=== PATIENT | male | born 1955 | race Caucasian/White ===

== ENCOUNTER 2021-02-26 13:17 | Emergency (ER) | payer MEDICARE, OTHER ==
[2021-02-26] MEDS ORDERED: Sodium Chloride 0.9% 10 ML Syringe FLUSH PRN (13:32)
[2021-02-26] MEDS ORDERED: Sodium Chloride 0.9% 1,000 ML IV SCH (13:45)
--- NOTE | 2021-02-26 14:54 | EDM.PDOC ---
ED HPI GENERAL MEDICAL PROBLEM - General Chief Complaint: Syncope Stated Complaint: [facility] Time Seen by Provider: 02/26/21 13:23 Source of Information: Reports: Patient, EMS History Limitations: Reports: No Limitations - History of Present Illness INITIAL COMMENTS - FREE TEXT/NARRATIVE: The patient presents by [facility] for syncope. He said he felt fine to day. He was out riding his [employer] and stopped for a couple beers. He said he was standing and felt lightheaded. Before he could lay down he passed out. He was out a few seconds. He had no seizure activity. He denies any injury from the fall. He has no headache, neck pain, chest pain, abdominal pain, arm or leg pain. He has no shortness of breath, nausea or vomiting. He has never had this happen before. He has no history of heart problems, hypertension or hypercholesterolemia. He does have some low back pain and he is thinking of having surgery done soon. Onset: Sudden Duration: Hour(s): Severity: Moderate Improves with: Reports: None Worsens with: Reports: None Associated Symptoms: Reports: No Other Symptoms - Related Data Allergies Allergy/AdvReac Type Severity Reaction Status Date / Time No Known Allergies Allergy Verified 02/26/21 13:22 Home Meds: Home Meds Omeprazole [Prilosec] 20 mg PO DAILY 12/11/15 [History] Sertraline [Zoloft] 100 mg PO DAILY 12/11/15 [History] Past Medical History Cardiovascular History: Reports: High Cholesterol Gastrointestinal History: Reports: GERD Psychiatric History: Reports: Depression Oncologic (Cancer) History: Reports: Prostate - Past Surgical History GI Surgical History: Reports: Hernia, Inguinal Other GI Surgeries/Procedures: colectomy for CA Social & Family History - Tobacco Use Tobacco Use Status *Q: Never Tobacco User - Caffeine Use Caffeine Use: Reports: None - Recreational Drug Use Recreational Drug Use: No - Living Situation & Occupation Living situation: Reports: Occupation: Employed ED ROS GENERAL - Review of Systems Review Of Systems: See Below Constitutional: Reports: No Symptoms HEENT: Reports: No Symptoms Respiratory: Reports: No Symptoms Cardiovascular: Reports: Syncope. Denies: Chest Pain Endocrine: Reports: No Symptoms GI/Abdominal: Reports: No Symptoms : Reports: No Symptoms Musculoskeletal: Reports: No Symptoms Skin: Reports: No Symptoms Neurological: Reports: No Symptoms ED EXAM, GENERAL - Physical Exam Exam: See Below Exam Limited By: No Limitations General Appearance: Alert, No Apparent Distress Ears: Normal External Exam Nose: Normal Inspection Head: Atraumatic, Normocephalic Neck: Normal Inspection Respiratory/Chest: No Respiratory Distress, Lungs Clear, Normal Breath Sounds Cardiovascular: Regular Rate, Rhythm, No Edema, No Murmur GI/Abdominal: Soft, Non-Tender, No Organomegaly, No Mass Back Exam: Normal Inspection Extremities: Normal Inspection Neurological: Alert, Oriented, No Motor/Sensory Deficits #1 Interpretation EKG Date: 02/26/21 Time: 13:24 Rhythm: NSR Rate (Beats/Min): 82 [place]: LAD-Left [place] Deviation P-Wave: Present QRS: Normal ST-T: Normal QT: Normal EKG Interpretation Comments: Q waves in the inferior leads Course - Vital Signs Last Recorded V/S: Last Vital Signs Temp 98.4 F 02/26/21 13:23 Pulse 81 02/26/21 13:23 Resp 12 02/26/21 13:23 BP 105/75 02/26/21 13:23 Pulse Ox 98 02/26/21 13:23 - Orders/Labs/Meds Orders: Active Orders 24 hr Category Date Time Status Cardiac Monitoring [RC] . DIRECTED Care 02/26/21 13:32 Active EKG Documentation Completion [RC] ASDIRECTED Care 02/26/21 13:31 Active Holter Monitor 48 Hours [RC] .PRN Care 02/26/21 14:47 Active Peripheral IV Care [RC] . DIRECTED Care 02/26/21 13:33 Active Sodium Chloride 0.9% [Normal Saline] 1,000 ml Med 02/26/21 13:45 Active IV .BOLUS Sodium Chloride 0.9% [Saline Flush] Med 02/26/21 13:32 Active 10 ml FLUSH ASDIRECTED PRN Peripheral IV Insertion Adult [OM.PC] Stat Oth 02/26/21 13:32 Ordered EKG 12 Lead [EK] Stat Ther 02/26/21 13:31 Ordered Medication Orders Sodium Chloride (Normal Saline) 1,000 mls @ 1,000 mls/hr IV .BOLUS DAVE Last Admin: 02/26/21 13:37 Dose: 1,000 mls/hr Documented by: COURTNEY Sodium Chloride (Sodium Chloride 0.9% 10 Ml Syringe) 10 ml FLUSH ASDIRECTED PRN PRN Reason: Keep Vein Open Last Admin: 02/26/21 13:38 Dose: 10 ml Documented by: COURTNEY Labs: Laboratory Tests 02/26/21 02/26/21 02/26/21 Range/Units 13:25 13:25 13:25 WBC 6.92 (4.23-9.07) K/mm3 RBC 4.44 L (4.63-6.08) M/mm3 Hgb 14.2 (13.7-17.5) gm/dl Hct 40.6 (40.1-51.0) % MCV 91.4 (79.0-92.2) fl MCH 32.0 (25.7-32.2) pg MCHC 35.0 (32.2-35.5) g/dl RDW Std Deviation 41.5 (35.1-43.9) fL Plt Count 327 (163-337) K/mm3 MPV 9.3 L (9.4-12.3) fl Neut % (Auto) 56.5 (34.0-67.9) % Lymph % (Auto) 32.8 (21.8-53.1) % [place] % (Auto) 8.2 (5.3-12.2) % Eos % (Auto) 1.2 (0.8-7.0) Baso % (Auto) 0.9 (0.1-1.2) % Neut # (Auto) 3.91 (1.78-5.38) K/mm3 Lymph # (Auto) 2.27 (1.32-3.57) K/mm3 [place] # (Auto) 0.57 (0.30-0.82) K/mm3 Eos # (Auto) 0.08 (0.04-0.54) K/mm3 Baso # (Auto) 0.06 (0.01-0.08) K/mm3 Sodium 141 (136-145) mEq/L Potassium 3.2 L (3.5-5.1) mEq/L Chloride 103 (98-107) mEq/L Carbon Dioxide 21 (21-32) mEq/L Anion Gap 20.2 H (5-15) BUN 13 (7-18) mg/dL Creatinine 0.9 (0.7-1.3) mg/dL Est Cr Clr Drug Dosing 88.62 mL/min Estimated GFR (MDRD) > 60 (>60) mL/min BUN/Creatinine Ratio 14.4 (14-18) Glucose 106 H (70-99) mg/dL Calcium 9.2 (8.5-10.1) mg/dL Total Bilirubin 0.5 (0.2-1.0) mg/dL AST 21 (15-37) U/L ALT 40 (16-63) U/L Alkaline Phosphatase 53 (46-116) U/L Troponin I < 0.017 (0.00-0.056) ng/mL Total Protein 7.3 (6.4-8.2) g/dl Albumin 4.2 (3.4-5.0) g/dl Globulin 3.1 gm/dL Albumin/Globulin Ratio 1.4 (1-2) Ethyl Alcohol 0.04 (0.00) gm% Meds: Medications Generic Name Dose Route Start Last Admin Trade Name Freq PRN Reason Stop Dose Admin Sodium Chloride 1,000 mls @ 1,000 mls/hr 02/26/21 13:45 02/26/21 13:37 Normal Saline IV 1,000 mls/hr .BOLUS DAVE Administration Sodium Chloride 10 ml 02/26/21 13:32 02/26/21 13:38 Sodium Chloride 0.9% 10 Ml Syringe FLUSH 10 ml ASDIRECTED PRN Administration Keep Vein Open - Re-Assessments/Exams Free Text/Narrative Re-Assessment/Exam: 02/26/21 14:54 I ordered an IV NS 1L bolus, EKG, and labs. His EKG shows a NSR with no acute changes. His CBC looks good. His potassium was a little low at 3.2. His anion gap was elevated at 20.2. His troponin is negative. His ETOH is 0.04. He feels better. I will get him on a holter monitor and have him follow up with Dr Kincaid. Departure - Departure Time of Disposition: 14:55 Disposition: Home, Self-Care 01 Condition: Good Clinical Impression: Syncope Qualifiers: Syncope type: unspecified Qualified Code(s): R55 - Syncope and collapse Referrals: Dedrick Kincaid MD [Primary Care Provider] - 1 Week Additional Instructions: Drink plenty of fluids. Wear the holter monitor fo 48 hours. Follow up with Dr Kincaid within a week. Please return if you are worse. Sepsis Event Note (ED) - Evaluation Sepsis Screening Result: No Definite Risk - Focused Exam Vital Signs: Vital Signs Temp Pulse Resp BP Pulse Ox 02/26/21 13:23 98.4 F 81 12 105/75 98 - My Orders Last 24 Hours: My Active Orders 02/26/21 13:31 EKG Documentation Completion [RC] ASDIRECTED EKG 12 Lead [EK] Stat 02/26/21 13:32 Cardiac Monitoring [RC] . DIRECTED Sodium Chloride 0.9% [Saline Flush] 10 ml FLUSH ASDIRECTED PRN Peripheral IV Insertion Adult [OM.PC] Stat 02/26/21 13:33 Peripheral IV Care [RC] . DIRECTED 02/26/21 13:45 Sodium Chloride 0.9% [Normal Saline] 1,000 ml IV .BOLUS 02/26/21 14:47 Holter Monitor 48 Hours [RC] .PRN - Assessment/Plan Last 24 Hours: My Active Orders 02/26/21 13:31 EKG Documentation Completion [RC] ASDIRECTED EKG 12 Lead [EK] Stat 02/26/21 13:32 Cardiac Monitoring [RC] . DIRECTED Sodium Chloride 0.9% [Saline Flush] 10 ml FLUSH ASDIRECTED PRN Peripheral IV Insertion Adult [OM.PC] Stat 02/26/21 13:33 Peripheral IV Care [RC] . DIRECTED 02/26/21 13:45 Sodium Chloride 0.9% [Normal Saline] 1,000 ml IV .BOLUS 02/26/21 14:47 Holter Monitor 48 Hours [RC] .PRN
[2021-02-26 15:29] VITALS: BP 130/70; PULSE 70
== END 2021-02-26 15:28 | disposition home or self-care (01) ==
LOC: JD.ED 13:17
DX: R55 Syncope and collapse (principal); K21.9 Gastro-esophageal reflux disease without esophagitis
CPT/HCPCS: 36415; 80053; 80307; 84484; 85025; 93005; 93225; 93226; 99284; J7030; 93010